=== PATIENT | male | born 1995 | race Caucasian/White ===

== ENCOUNTER 2016-07-18 14:10 | Inpatient (IN) | payer OTHER ==
[2016-07-18 15:15] VITALS: BMI 21.7
--- NOTE | 2016-07-18 19:27 | HP ---
COWS - Scale Resting Pulse: 1= [place] 81-100 Sweatin= Chills/Flushing Restless Observation: 1= Difficult to Sit Still Pupil Size: 0= Normal to Room Light Bone or Joint Aches: 2= Severe Diffuse Aches Runny Nose/ Eye Tearin= Runny Nose/Eyes GI Upset > 30mins: 2= Nausea/Diarrhea Tremor Observation: 2= Slight Tremor Visible Yawning Observation: 0= None Anxiety or Irritability: 2=Irritable/Anxious Goose Flesh Skin: 3=Piloerection COWS Score: 16 Admission ROS S - [facility] Chief Complaint: WITHDRAWAL SX Allergies/Adverse Reactions: Allergies Allergy/AdvReac Type Severity Reaction Status Date / Time No Known Allergies Allergy Verified 07/18/16 19:23 History of Present Illness: 21 YEARS OLD MALE WITH LONG HISTORY OF OPIATE NICOTINE DEPENDENCE, DENIES MEDICAL ISSUE HAS ANXIETY TREATED WITH SEROQUEL, LONGEST SOBRIETY 2 DAYS IS ADMITTED TO DETOX Exam Limitations: No Limitations - Ebola screening Have you traveled outside of the country in the last 21 days: No (N) Have you had contact with anyone from an Ebola affected area: No Have you been sick,other than usual withdrawal symptoms: No Do you have a fever: No - Review of Systems Constitutional: Chills, Changes in sleep, Weight Stable EENT: reports: No Symptoms Reported Respiratory: reports: No Symptoms reported Cardiac: reports: No Symptoms Reported GI: reports: Diarrhea, Nausea, Poor Fluid Intake, Abdominal cramping : reports: No Symptoms Reported Musculoskeletal: reports: Back Pain, Joint Pain, Muscle Pain, Neck Pain Integumentary: reports: No Symptoms Reported Neuro: reports: Tremors Endocrine: reports: No Symptoms Reported Hematology: reports: No Symptoms Reported Psychiatric: reports: Judgement Intact, Orientated x3, Anxious Other Systems: Reviewed and Negative Patient History - Patient Medical History Hx Anemia: No Hx Asthma: No Hx Chronic Obstructive Pulmonary Disease (COPD): No Hx Cancer: No Hx Cardiac Disorders: No Hx Congestive Heart Failure: No Hx Hypertension: No Hx Hypercholesterolemia: No Hx Pacemaker: No HX Cerebrovascular Accident: No Hx Seizures: No Hx Dementia: No Hx Diabetes: No Hx Gastrointestinal Disorders: No Hx Liver Disease: No Hx Sexually Transmitted Disorders: No Hx Renal Disease (ESRD): No Hx Thyroid Disease: No Hx Human Immunodeficiency Virus (HIV): No Hx Hepatitis C: No Hx Depression: Yes Hx Suicide Attempt: Yes (18 YEARS OLD CUT WRISTS) Hx Bipolar Disorder: No Hx Schizophrenia: No - Patient Surgical History Past Surgical History: No - PPD History Previous Implant?: Yes Documented Results: Negative w/o proof Implanted On Prior [facility] Admission?: No PPD to be Administered?: Yes - Smoking Cessation Smoking history: Current every day smoker Have you smoked in the past 12 months: Yes Aproximately how many cigarettes per day: 7 Cigars Per Day: 0 Hx Chewing Tobacco Use: No Initiated information on smoking cessation: Yes 'Breaking Loose' booklet given: 07/18/16 - Substance & Tx. History Hx Alcohol Use: No Hx Substance Use: Yes Substance Use Type: Marijuana, Opiates Hx Substance Use Treatment: Yes - Substances Abused Heroin Route: Inhalation Frequency: Daily Amount used: 10 BAGS Age of first use: 20 Date of Last Use: 07/17/16 Family Disease History - Family Disease History Family History: Denies Admission Physical Exam BHS - Vital Signs Vital Signs: Vital Signs - 24 hr 07/18/16 15:13 Temperature 99.1 F Pulse Rate 82 Respiratory 20 Rate Blood Pressure 123/66 - Physical General Appearance: Yes: Appropriately Dressed, Mild Distress, Tremorous, Irritable, Sweating, Anxious HEENTM: Yes: Hearing grossly Normal, Normal ENT Inspection, Normocephalic, Normal Voice Respiratory: Yes: Chest Non-Tender, Lungs Clear, Normal Breath Sounds, No Respiratory Distress, No Accessory Muscle Use Neck: Yes: Supple, Trachea in good position Breast: Yes: Breasts Symetrical Cardiology: Yes: Regular Rhythm, Regular Rate, S1, S2 Abdominal: Yes: Non Tender, Soft Genitourinary: Yes: Within Normal Limits Back: Yes: Normal Inspection Musculoskeletal: Yes: full range of Motion, Gait Steady, Muscle Pain Extremities: Yes: Normal Inspection, Normal Range of Motion, Non-Tender, Tremors Neurological: Yes: Fully Oriented, Alert, Motor Strength 5/5, Normal Mood/Affect , Normal Response Integumentary: Yes: Warm, Moist Lymphatic: Yes: Within Normal Limits - Diagnostic (1) Opioid dependence with withdrawal Current Visit: Yes Status: Acute (2) Nicotine dependence Current Visit: Yes Status: Acute Qualifiers: Nicotine product type: cigarettes Substance use status: uncomplicated Qualified Code(s): F17.210 - Nicotine dependence, cigarettes, uncomplicated (3) Anxiety Current Visit: Yes Status: Suspected Comment: SEROQUEL Cleared for Admission [facility] - Detox or Rehab [facility] Level of Care: Medically Managed Detox Regimen/Protocol: Methadone [facility] Breath Alcohol Content Breath Alcohol Content: 0 Urine Drug Screen - Results Drug Screen Negative: No Urine Drug Screen Results: THC-Marijuana, OPI-Opiates
[2016-07-18] MEDS ORDERED: NICOTINE POLACRILEX 2 MG GUM BC PRN (19:31)
[2016-07-18] MEDS ORDERED: MAG HYDROX/AL HYDROX/SIMETH 30 ML UNIT-DOSE CUP PO PRN (19:31)
[2016-07-18] MEDS ORDERED: MENTHOL/PHENOL 1 EACH UD MM PRN (19:31)
[2016-07-18] MEDS ORDERED: LOPERAMIDE HCL 2 MG CAPSULE PO PRN (19:31)
[2016-07-18] MEDS ORDERED: IBUPROFEN 400 MG TABLET (FP) PO PRN (19:31)
[2016-07-18] MEDS ORDERED: P-EPHED 60MG/TRIPROLIDI 2.5MG TABLET PO PRN (19:31)
[2016-07-18] MEDS ORDERED: guaiFENesin/D-METHORPHAN HB 10 ML UNIT-DOSE CUPS PO PRN (19:31)
[2016-07-18] MEDS ORDERED: MAGNESIUM CITRATE 300 ML BOTTLE PO PRN (19:31)
[2016-07-18] MEDS ORDERED: ACETAMINOPHEN 325 MG TABLET (FP) PO PRN (19:31)
[2016-07-18] MEDS ORDERED: MAGNESIUM HYDROX 2400MG/30ML ORAL SUSPENSION 30 ML CUP PO PRN (19:31)
[2016-07-18] MEDS ORDERED: METHADONE HCL 10 MG TABLET (FOR DETOX USE ONLY) PO ONE ×2 (19:31→23:00)
[2016-07-18] MEDS: diazePAM 5 MG TABLET PO PRN (20:27)
[2016-07-18] MEDS: diphenhydrAMINE HCL 50 MG CAPSULE PO PRN (22:43)
[2016-07-18] MEDS: THIAMINE HCL 100 MG TABLET (FP) PO SCH (22:43)
[2016-07-19] MEDS ORDERED: METHADONE HCL 10 MG TABLET (FOR DETOX USE ONLY) PO ONE (10:00)
--- NOTE | 2016-07-19 10:26 | PN ---
BHS COWS - Scale Resting Pulse: 1= [place] 81-100 Sweatin=Flushed/Facial Moisture Restless Observation: 1= Difficult to Sit Still Pupil Size: 1= Pupils >than Normal Bone or Joint Aches: 2= Severe Diffuse Aches Runny Nose/ Eye Tearin= Nasal Congestion GI Upset > 30mins: 1= Stomach Cramp Tremor Observation of Outstretched Hands: 1= Tremor [place], Not Seen Yawning Observation: 0= None Anxiety or Irritability: 2=Irritable/Anxious Goose Flesh Skin: 0=Smooth Skin COWS Score: 12 BHS Progress Note (SOAP) Subjective: interrupted sleep, sweats, shakes , lbp Objective: 07/19/16 10:24 Vital Signs Temperature 98.4 F 07/19/16 10:09 Pulse Rate 74 07/19/16 10:09 Respiratory Rate 18 07/19/16 10:09 Blood Pressure 105/53 07/19/16 10:09 O2 Sat by Pulse Oximetry (%) Vital Signs Temperature 98.4 F 07/19/16 10:09 Pulse Rate 74 07/19/16 10:09 Respiratory Rate 18 07/19/16 10:09 Blood Pressure 105/53 07/19/16 10:09 O2 Sat by Pulse Oximetry (%) pending labs pt aox3 in nad ambulating Assessment: 07/19/16 10:24 withdraw; sxs lbp Plan: cont. detox increase fluids flexeril 10mg tid/prn motrin prn f/up pending labs
[2016-07-19] MEDS: PRENATAL VITAMINS W/ FOLIC ACID TABLET (FP) PO SCH (10:28)
[2016-07-19 10:29] LABS: MCH 30.4 pg (25.7-33.7); MCHC 33.3 g/dl (32.0-35.9); MEAN CELL VOLUME 91.1 fl (80-96); MEAN PLT VOLUME 10.9 fl (7.5-11.1); PLATELET COUNT 164 K/MM3 (134-434); WHITE BLOOD COUNT 7.6 K/mm3 (4.0-10.0)
[2016-07-19] MEDS: diazePAM 5 MG TABLET PO PRN ×2 (10:31→18:18)
[2016-07-19] MEDS: NICOTINE 14 MG/24 HOURS TOPICAL PATCH TD SCH (10:35)
[2016-07-19 10:42] LABS: ANION GAP 4 (8-16); CO2 31 mmol/L (21-32); GLUCOSE,RANDOM 78 mg/dL (74-106)
[2016-07-19 10:53] LABS: ALK PHOS 63 U/L (45-117); BILIRUBIN,TOTAL 0.4 mg/dL (0.2-1.0); CREATININE 0.9 mg/dL (0.7-1.3); SGOT/AST 10 U/L (15-37); SGPT/ALT 18 U/L (12-78); TOT PROT 7.1 g/dl (6.4-8.2)
[2016-07-19 14:27] LABS: URINE APPEARANCE CLEAR; URINE BILIRUBIN NEGATIVE (NEGATIVE); URINE BLOOD NEGATIVE (NEGATIVE); URINE COLOR YELLOW; URINE GLUCOSE (UA) NEGATIVE (NEGATIVE); URINE KETONE NEGATIVE (NEGATIVE); URINE LEUK ESTERASE NEGATIVE (NEGATIVE); URINE NITRITE NEGATIVE (NEGATIVE); URINE PROTEIN NEGATIVE (NEGATIVE); URINE UROBILINOGEN NEGATIVE E.U./dl (0.2-1.0)
--- NOTE | 2016-07-19 16:22 | EKG ---
Test Reason : Blood Pressure : / mmHG Vent. Rate : 072 BPM Atrial Rate : 072 BPM P-R Int : 174 ms QRS Dur : 082 ms QT Int : 394 ms P-R-T Axes : 061 068 030 degrees QTc Int : 431 ms NORMAL SINUS RHYTHM MINIMAL VOLTAGE CRITERIA FOR LVH, MAY BE NORMAL VARIANT BORDERLINE ECG NO PREVIOUS ECGS AVAILABLE Confirmed by GRANT PRIEST MD ([id number]) on 07/19/2016 4:21:30 PM Referred By: Confirmed By:GRANT PRIEST MD
[2016-07-19] MEDS: THIAMINE HCL 100 MG TABLET (FP) PO SCH (22:29)
[2016-07-19] MEDS: diphenhydrAMINE HCL 50 MG CAPSULE PO PRN (22:29)
[2016-07-20] MEDS ORDERED: METHADONE HCL 5 MG TABLET (FOR DETOX USE ONLY) PO ONE (10:00)
[2016-07-20] MEDS: PRENATAL VITAMINS W/ FOLIC ACID TABLET (FP) PO SCH (10:59)
[2016-07-20] MEDS: diazePAM 5 MG TABLET PO PRN (10:59)
[2016-07-20] MEDS: NICOTINE 14 MG/24 HOURS TOPICAL PATCH TD SCH (11:00)
--- NOTE | 2016-07-20 12:54 | PN ---
S CIWA - CIWA Score Nausea/Vomitin-Mild Nausea/No Vomiting Muscle Tremors: 3 Anxiety: 2 Agitation: 2 Paroxysmal Sweats: 2 Orientation: 0-Oriented Tacttile Disturbances: 1-Very Mild Itch/Numbness Auditory Disturbances: 0-None Visual Disturbances: 0-None Headache: 0-None Present CIWA-Ar Total Score: 11 BHS Progress Note (SOAP) Subjective: interupted sleep, shakes Objective: 07/20/16 12:53 Vital Signs Temperature 98.2 F 07/20/16 10:02 Pulse Rate 81 07/20/16 10:02 Respiratory Rate 18 07/20/16 10:02 Blood Pressure 127/66 07/20/16 10:02 O2 Sat by Pulse Oximetry (%) Vital Signs Temperature 98.2 F 07/20/16 10:02 Pulse Rate 81 07/20/16 10:02 Respiratory Rate 18 07/20/16 10:02 Blood Pressure 127/66 07/20/16 10:02 O2 Sat by Pulse Oximetry (%) Laboratory Tests 07/19/16 07/19/16 07/19/16 06:30 06:30 06:30 WBC 7.6 RBC 4.54 Hgb 13.8 Hct 41.4 MCV 91.1 MCHC 33.3 RDW 14.0 Plt Count 164 MPV 10.9 Sodium 142 Potassium 4.2 Chloride 107 Carbon Dioxide 31 Anion Gap 4 L BUN 14 Creatinine 0.9 Creat Clearance w eGFR > 60 Random Glucose 78 Calcium 9.0 Total Bilirubin 0.4 AST 10 L ALT 18 Alkaline Phosphatase 63 Total Protein 7.1 Albumin 4.0 Urine Color Urine Appearance Urine pH Ur Specific [place] Urine Protein Urine Glucose (UA) Urine Ketones Urine Blood Urine Nitrite Urine Bilirubin Urine Urobilinogen Ur Leukocyte Esterase RPR Titer Nonreactive Hepatitis C Antibody 07/19/16 07/19/16 06:30 11:20 WBC RBC Hgb Hct MCV MCHC RDW Plt Count MPV Sodium Potassium Chloride Carbon Dioxide Anion Gap BUN Creatinine Creat Clearance w eGFR Random Glucose Calcium Total Bilirubin AST ALT Alkaline Phosphatase Total Protein Albumin Urine Color Yellow Urine Appearance Clear Urine pH 5.0 Ur Specific [place] 1.027 Urine Protein Negative Urine Glucose (UA) Negative Urine Ketones Negative Urine Blood Negative Urine Nitrite Negative Urine Bilirubin Negative Urine Urobilinogen Negative Ur Leukocyte Esterase Negative RPR Titer Hepatitis C Antibody <0.1 pt aox3 in nad ambulating Assessment: 07/20/16 12:53 withdrawlsx's Plan: cont. detox increase fluids
[2016-07-20] MEDS: diphenhydrAMINE HCL 50 MG CAPSULE PO PRN (22:32)
[2016-07-20] MEDS: THIAMINE HCL 100 MG TABLET (FP) PO SCH (23:13)
[2016-07-21] MEDS ORDERED: METHADONE HCL 5 MG TABLET (FOR DETOX USE ONLY) PO ONE (10:00)
[2016-07-21] MEDS: diazePAM 5 MG TABLET PO PRN (10:37)
[2016-07-21] MEDS: PRENATAL VITAMINS W/ FOLIC ACID TABLET (FP) PO SCH (10:37)
[2016-07-21] MEDS: NICOTINE 14 MG/24 HOURS TOPICAL PATCH TD SCH (10:37)
--- NOTE | 2016-07-21 10:49 | PN ---
BHS Progress Note (SOAP) Subjective: irritable sweats Objective: 07/21/16 10:48 Vital Signs Temperature 97.7 F 07/21/16 10:01 Pulse Rate 88 07/21/16 10:01 Respiratory Rate 18 07/21/16 10:01 Blood Pressure 127/60 07/21/16 10:01 O2 Sat by Pulse Oximetry (%) Laboratory Tests 07/19/16 07/19/16 07/19/16 06:30 06:30 06:30 WBC 7.6 RBC 4.54 Hgb 13.8 Hct 41.4 MCV 91.1 MCHC 33.3 RDW 14.0 Plt Count 164 MPV 10.9 Sodium 142 Potassium 4.2 Chloride 107 Carbon Dioxide 31 Anion Gap 4 L BUN 14 Creatinine 0.9 Creat Clearance w eGFR > 60 Random Glucose 78 Calcium 9.0 Total Bilirubin 0.4 AST 10 L ALT 18 Alkaline Phosphatase 63 Total Protein 7.1 Albumin 4.0 Urine Color Urine Appearance Urine pH Ur Specific [place] Urine Protein Urine Glucose (UA) Urine Ketones Urine Blood Urine Nitrite Urine Bilirubin Urine Urobilinogen Ur Leukocyte Esterase RPR Titer Nonreactive Hepatitis C Antibody 07/19/16 07/19/16 06:30 11:20 WBC RBC Hgb Hct MCV MCHC RDW Plt Count MPV Sodium Potassium Chloride Carbon Dioxide Anion Gap BUN Creatinine Creat Clearance w eGFR Random Glucose Calcium Total Bilirubin AST ALT Alkaline Phosphatase Total Protein Albumin Urine Color Yellow Urine Appearance Clear Urine pH 5.0 Ur Specific [place] 1.027 Urine Protein Negative Urine Glucose (UA) Negative Urine Ketones Negative Urine Blood Negative Urine Nitrite Negative Urine Bilirubin Negative Urine Urobilinogen Negative Ur Leukocyte Esterase Negative RPR Titer Hepatitis C Antibody <0.1 awake/alert ambulating no acute distress Assessment: 07/21/16 10:49 withdrawal sx Plan: continue detox increase fluids
[2016-07-21] MEDS: THIAMINE HCL 100 MG TABLET (FP) PO SCH (22:33)
[2016-07-21] MEDS: diphenhydrAMINE HCL 50 MG CAPSULE PO PRN (22:33)
[2016-07-22] MEDS ORDERED: METHADONE HCL 10 MG TABLET (FOR DETOX USE ONLY) PO ONE (10:00)
[2016-07-22] MEDS: NICOTINE 14 MG/24 HOURS TOPICAL PATCH TD SCH (10:39)
[2016-07-22] MEDS: PRENATAL VITAMINS W/ FOLIC ACID TABLET (FP) PO SCH (10:39)
--- NOTE | 2016-07-22 10:46 | PN ---
BHS Progress Note (SOAP) Subjective: sweats Objective: 07/22/16 10:46 Vital Signs Temperature 97.3 F L 07/22/16 10:00 Pulse Rate 81 07/22/16 10:00 Respiratory Rate 18 07/22/16 10:00 Blood Pressure 124/59 07/22/16 10:00 O2 Sat by Pulse Oximetry (%) awake/alert ambulating no acute distress Assessment: 07/22/16 10:46 withdrawal sx Plan: continue detox d/c in am
[2016-07-22] MEDS: diphenhydrAMINE HCL 50 MG CAPSULE PO PRN (22:48)
[2016-07-22] MEDS: THIAMINE HCL 100 MG TABLET (FP) PO SCH (22:48)
[2016-07-23] MEDS ORDERED: METHADONE HCL 5 MG TABLET (FOR DETOX USE ONLY) PO ONE (06:00)
[2016-07-23 06:23] VITALS: BP 100/64; PULSE 75; TEMP 98.2
--- NOTE | 2016-07-23 13:47 | PN ---
BHS Progress Note (SOAP) Subjective: no complaints Objective: 07/23/16 13:46 Vital Signs - 8 hr 07/23/16 06:23 Temperature 98.2 F Pulse Rate 75 Respiratory 18 Rate Blood Pressure 100/64 Laboratory Tests 07/19/16 07/19/16 07/19/16 06:30 06:30 06:30 WBC 7.6 RBC 4.54 Hgb 13.8 Hct 41.4 MCV 91.1 MCHC 33.3 RDW 14.0 Plt Count 164 MPV 10.9 Sodium 142 Potassium 4.2 Chloride 107 Carbon Dioxide 31 Anion Gap 4 L BUN 14 Creatinine 0.9 Creat Clearance w eGFR > 60 Random Glucose 78 Calcium 9.0 Total Bilirubin 0.4 AST 10 L ALT 18 Alkaline Phosphatase 63 Total Protein 7.1 Albumin 4.0 Urine Color Urine Appearance Urine pH Ur Specific [place] Urine Protein Urine Glucose (UA) Urine Ketones Urine Blood Urine Nitrite Urine Bilirubin Urine Urobilinogen Ur Leukocyte Esterase RPR Titer Nonreactive Hepatitis C Antibody 07/19/16 07/19/16 06:30 11:20 WBC RBC Hgb Hct MCV MCHC RDW Plt Count MPV Sodium Potassium Chloride Carbon Dioxide Anion Gap BUN Creatinine Creat Clearance w eGFR Random Glucose Calcium Total Bilirubin AST ALT Alkaline Phosphatase Total Protein Albumin Urine Color Yellow Urine Appearance Clear Urine pH 5.0 Ur Specific [place] 1.027 Urine Protein Negative Urine Glucose (UA) Negative Urine Ketones Negative Urine Blood Negative Urine Nitrite Negative Urine Bilirubin Negative Urine Urobilinogen Negative Ur Leukocyte Esterase Negative RPR Titer Hepatitis C Antibody <0.1 Assessment: 07/23/16 13:47 completed detox, medically stable Plan: discharged early am
--- NOTE | 2016-07-23 13:48 | DS ---
[facility] Detox Discharge Summary Admission Date: 07/18/16 Discharge Date: 07/23/16 - History Present History: Opioid Dependence Pertinent Past History: nicotine dependence, anxiety, depression, insomnia - Physical Exam Results Vital Signs: Vital Signs Temperature 98.2 F 07/23/16 06:23 Pulse Rate 75 07/23/16 06:23 Respiratory Rate 18 07/23/16 06:23 Blood Pressure 100/64 07/23/16 06:23 O2 Sat by Pulse Oximetry (%) Pertinent Admission Physical Exam Findings: withdrawal sx - Treatment Hospital Course: Detox Protocol Followed, Detoxed Safely, Responded well, Discharged Condition Good, Rehab Referral Accepted Patient has Accepted a Rehab Referral to: Yes - Medication Discharge Medications: Ambulatory Orders Quetiapine Fumarate [Seroquel -] 50 mg PO HS 07/18/16 - Diagnosis (1) Nicotine dependence Status: Acute Qualifiers: Nicotine product type: cigarettes Substance use status: uncomplicated Qualified Code(s): F17.210 - Nicotine dependence, cigarettes, uncomplicated (2) Opioid dependence with withdrawal Status: Acute (3) Anxiety Status: Suspected - AMA Did Patient Leave Against Medical Advice: No
== END 2016-07-23 09:25 | disposition home or self-care (01) | DRG 773 ==
LOC: YASAS 14:10 → Y6N 19:25
PROVIDERS: ADMIT Internal Medicine; ATTEND Internal Medicine
PROC: HZ2ZZZZ Detoxification Services for Substance Abuse Treatment (ICD-10-PCS; principal; 2016-07-18)
DX: F11.23 Opioid dependence with withdrawal (principal); F17.210 Nicotine dependence, cigarettes, uncomplicated; F41.9 Anxiety disorder, unspecified; M54.5 Low back pain; Z91.5 Personal history of self-harm
CPT/HCPCS: 36415; 80053; 81003; 85027; 86593; 86803; 93005; 93010

== ENCOUNTER 2023-06-14 12:50 | Inpatient (IN) | payer OTHER ==
[2023-06-14 13:15] VITALS: BMI 30.7
[2023-06-14] MEDS ORDERED: ACETAMINOPHEN 325 MG TABLET (FP) PO PRN (17:01)
[2023-06-14] MEDS ORDERED: ONDANSETRON *ODT* 4 MG TABLET SL PRN (17:01)
[2023-06-14] MEDS ORDERED: MAG HYDROX/AL HYDROX/SIMETH 30 ML UNIT-DOSE CUP PO PRN (17:01)
[2023-06-14] MEDS ORDERED: MAGNESIUM HYDROX 2400MG/30ML ORAL SUSPENSION 30 ML CUP PO PRN (17:01)
[2023-06-14] MEDS ORDERED: DICYCLOMINE HCL 10 MG CAPSULE PO PRN (17:01)
[2023-06-14] MEDS ORDERED: POLYETHYLENE GLYCOL (HEALTHYLAX) 3350 17 GM PACKET PO PRN (17:01)
[2023-06-14] MEDS ORDERED: LOPERAMIDE HCL 2 MG CAPSULE PO PRN (17:01)
[2023-06-14] MEDS ORDERED: BENZONATATE 200 MG CAPSULE PO PRN (17:01)
[2023-06-14] MEDS ORDERED: guaiFENesin 600 MG TABLET.ER (FP) PO PRN (17:01)
[2023-06-14] MEDS ORDERED: IBUPROFEN 400 MG TABLET (FP) PO PRN (17:01)
[2023-06-14] MEDS ORDERED: BENZOCAINE/MENTHOL (CHLORASEPTIC ) LOZENGE MM PRN (17:01)
[2023-06-14] MEDS ORDERED: IBUPROFEN 600 MG TABLET (FP) PO PRN (17:01)
[2023-06-14] MEDS ORDERED: BISMUTH SUBSALICYLATE 524 MG/30 ML PO PRN (17:01)
[2023-06-14] MEDS ORDERED: P-EPHED 60MG/TRIPROLIDI 2.5MG TABLET PO PRN (17:01)
[2023-06-14] MEDS ORDERED: diazePAM 5 MG TABLET PO PRN (17:03)
[2023-06-14] MEDS ORDERED: diazePAM 5 MG TABLET ONE (17:56)
[2023-06-14] MEDS: diazePAM 5 MG TABLET PO SCH ×2 (17:59→22:51)
[2023-06-14] MEDS: THIAMINE HCL 100 MG TABLET (FP) PO SCH (22:50)
[2023-06-14] MEDS: MELATONIN 5 MG TABLETS PO SCH (22:50)
[2023-06-14] MEDS: METHOCARBAMOL 500 MG TABLET PO PRN (22:51)
[2023-06-15] MEDS: diazePAM 5 MG TABLET PO SCH ×4 (05:32→22:00)
[2023-06-15] MEDS ORDERED: methaDONE HCL 10 MG TABLET PO SCH (07:37)
[2023-06-15] MEDS: PRENATAL VITAMINS W/ FOLIC ACID TABLET (FP) PO SCH (10:04)
[2023-06-15 11:21] LABS: HEMATOCRIT 42.9 % (35.4-49); HEMOGLOBIN 13.9 GM/dL (11.7-16.9); MCH 29.9 pg (25.7-33.7); MCHC 32.5 g/dl (32.0-35.9); MEAN CELL VOLUME 92.1 fl (80-96); MEAN PLT VOLUME 10.7 fl (7.5-11.1); PLATELET COUNT 155 10^3/uL (134-434); RBC 4.66 M/mm3 (4.00-5.60); RDW 15.1 % (11.9-15.9); WHITE BLOOD COUNT 4.7 K/mm3 (4.0-10.0)
[2023-06-15 11:39] LABS: CHLORIDE 107 mmol/L (98-107); SODIUM 140 mmol/L (136-145)
[2023-06-15 11:42] LABS: ALBUMIN 3.6 g/dl (3.4-5.0); ANION GAP 4 mmol/L (4-13); CALCIUM 8.7 mg/dL (8.5-10.1); CO2 29 mmol/L (21-32); GLUCOSE,RANDOM 86 mg/dL (74-106)
[2023-06-15 11:46] LABS: CREATININE 0.8 mg/dL (0.55-1.3); SGOT/AST 6 U/L (15-37); SGPT/ALT 17 U/L (13-61)
[2023-06-15 11:47] LABS: BILIRUBIN,TOTAL 0.5 mg/dL (0.2-1); TOT PROT 6.8 g/dl (6.4-8.2)
[2023-06-15 11:49] LABS: ALK PHOS 134 U/L (45-117)
[2023-06-15] MEDS: THIAMINE HCL 100 MG TABLET (FP) PO SCH (22:00)
[2023-06-15] MEDS: MELATONIN 5 MG TABLETS PO SCH (22:00)
[2023-06-15] MEDS: METHOCARBAMOL 500 MG TABLET PO PRN (22:01)
[2023-06-16] MEDS: diazePAM 5 MG TABLET PO SCH ×2 (06:17→17:49)
[2023-06-16] MEDS: METHOCARBAMOL 500 MG TABLET PO PRN ×2 (10:16→17:50)
[2023-06-16] MEDS: PRENATAL VITAMINS W/ FOLIC ACID TABLET (FP) PO SCH (10:31)
[2023-06-16] MEDS: THIAMINE HCL 100 MG TABLET (FP) PO SCH (22:16)
[2023-06-16] MEDS: MELATONIN 5 MG TABLETS PO SCH (22:16)
[2023-06-17] MEDS: METHOCARBAMOL 500 MG TABLET PO PRN ×2 (05:46→10:25)
[2023-06-17] MEDS ORDERED: diazePAM 5 MG TABLET PO ONE (06:00)
[2023-06-17] MEDS: PRENATAL VITAMINS W/ FOLIC ACID TABLET (FP) PO SCH (10:25)
[2023-06-17 13:32] VITALS: BP 119/71; PULSE 75; RESP 16; TEMP 96.9
== END 2023-06-17 14:09 | disposition other institution (70) | DRG 773 ==
LOC: YASAS 12:50 → Y3N 17:39
PROVIDERS: ADMIT Allergy & Immunology; ATTEND Surgery
PROC: HZ2ZZZZ Detoxification Services for Substance Abuse Treatment (ICD-10-PCS; principal; 2023-06-14)
DX: F10.230 Alcohol dependence with withdrawal, uncomplicated (principal); F11.20 Opioid dependence, uncomplicated; F14.20 Cocaine dependence, uncomplicated; F17.210 Nicotine dependence, cigarettes, uncomplicated
CPT/HCPCS: 36415; 80053; 80307; 85027; 86780; 87635

== ENCOUNTER 2023-06-17 14:24 | Inpatient (IN) | payer OTHER ==
[2023-06-17] MEDS ORDERED: BENZOCAINE/MENTHOL (CHLORASEPTIC ) LOZENGE MM PRN (18:10)
[2023-06-17] MEDS ORDERED: NALOXONE HCL (KLOXXADO) 8 MG SPRAY NS PRN (18:10)
[2023-06-17] MEDS ORDERED: NALOXONE HCL 0.4 MG/ML VIAL IM PRN (18:10)
[2023-06-17] MEDS ORDERED: ACETAMINOPHEN 325 MG TABLET (FP) PO PRN (18:10)
[2023-06-17] MEDS ORDERED: BENZONATATE 200 MG CAPSULE PO PRN (18:10)
[2023-06-17] MEDS ORDERED: MAGNESIUM HYDROX 2400MG/30ML ORAL SUSPENSION 30 ML CUP PO PRN (18:10)
[2023-06-17] MEDS ORDERED: guaiFENesin 600 MG TABLET.ER (FP) PO PRN (18:10)
[2023-06-17] MEDS ORDERED: MAG HYDROX/AL HYDROX/SIMETH 30 ML UNIT-DOSE CUP PO PRN (18:10)
[2023-06-17] MEDS ORDERED: POLYETHYLENE GLYCOL (HEALTHYLAX) 3350 17 GM PACKET PO PRN (18:10)
[2023-06-17] MEDS ORDERED: IBUPROFEN 400 MG TABLET (FP) PO PRN (18:10)
[2023-06-17] MEDS ORDERED: LOPERAMIDE HCL 2 MG CAPSULE PO PRN (18:10)
[2023-06-17] MEDS ORDERED: COLLOIDAL OATMEAL 1 BAR EACH TP PRN (18:10)
[2023-06-17] MEDS: MELATONIN 5 MG TABLETS PO SCH (21:10)
[2023-06-17] MEDS: THIAMINE HCL 100 MG TABLET (FP) PO SCH (21:10)
[2023-06-17] MEDS: hydrOXYzine PAMOATE 25 MG CAPSULE (FP) PO PRN (21:10)
[2023-06-17 23:05] LABS: EPI CELLS 15 /uL (0-25.1); HYALINE CASTS 10 /uL (0-3.1); URINE APPEARANCE CLEAR; URINE BACTERIA 12 /uL (0-1359); URINE BILIRUBIN NEGATIVE (NEGATIVE); URINE COLOR YELLOW; URINE GLUCOSE (UA) NEGATIVE (NEGATIVE); URINE KETONE TRACE (NEGATIVE); URINE LEUK ESTERASE 1+ (NEGATIVE); URINE NITRITE NEGATIVE (NEGATIVE); URINE PROTEIN NEGATIVE (NEGATIVE); URINE RBC 2 /uL (0-23.9); URINE WBC 110 /uL (0-25.8)
[2023-06-18] MEDS ORDERED: methaDONE HCL 10 MG TABLET PO SCH (06:00)
[2023-06-18] MEDS: PRENATAL VITAMINS W/ FOLIC ACID TABLET (FP) PO SCH (10:28)
[2023-06-18] MEDS: THIAMINE HCL 100 MG TABLET (FP) PO SCH (21:15)
[2023-06-18] MEDS: MELATONIN 5 MG TABLETS PO SCH (21:15)
[2023-06-19] MEDS: PRENATAL VITAMINS W/ FOLIC ACID TABLET (FP) PO SCH (09:42)
[2023-06-19 11:45] LABS: CHLORIDE 107 mmol/L (98-107); HEMATOCRIT 49.8 % (35.4-49); MCH 29.5 pg (25.7-33.7); MCHC 32.2 g/dl (32.0-35.9); MEAN CELL VOLUME 91.6 fl (80-96); MEAN PLT VOLUME 10.9 fl (7.5-11.1); PLATELET COUNT 185 10^3/uL (134-434); POTASSIUM 3.9 mmol/L (3.5-5.1); RBC 5.44 M/mm3 (4.00-5.60); RDW 14.9 % (11.9-15.9); SODIUM 141 mmol/L (136-145); WHITE BLOOD COUNT 5.2 K/mm3 (4.0-10.0)
[2023-06-19 11:52] LABS: ALBUMIN 4.1 g/dl (3.4-5.0); ANION GAP 9 mmol/L (4-13); BLOOD UREA NITROGEN 8.1 mg/dL (7-18); CALCIUM 9.7 mg/dL (8.5-10.1); CO2 24 mmol/L (21-32); GLUCOSE,RANDOM 104 mg/dL (74-106)
[2023-06-19 11:54] LABS: SGOT/AST 11 U/L (15-37); SGPT/ALT 24 U/L (13-61)
[2023-06-19 11:56] LABS: BILIRUBIN,TOTAL 0.5 mg/dL (0.2-1); CREATININE 0.9 mg/dL (0.55-1.3); TOT PROT 7.8 g/dl (6.4-8.2)
[2023-06-19 11:57] LABS: ALK PHOS 154 U/L (45-117)
[2023-06-19 15:35] LABS: HIV INTERPRETATION NEGATIVE (NEGATIVE)
[2023-06-19 19:59] LABS: SYPHILIS W/ RPR CONF NON-REACTIVE (NONREACTIVE)
[2023-06-19] MEDS: MELATONIN 5 MG TABLETS PO SCH (21:19)
[2023-06-19] MEDS: THIAMINE HCL 100 MG TABLET (FP) PO SCH (21:20)
[2023-06-20] MEDS: hydrOXYzine PAMOATE 25 MG CAPSULE (FP) PO PRN ×2 (10:13→21:22)
[2023-06-20] MEDS: PRENATAL VITAMINS W/ FOLIC ACID TABLET (FP) PO SCH (10:13)
[2023-06-20] MEDS: THIAMINE HCL 100 MG TABLET (FP) PO SCH (21:22)
[2023-06-20] MEDS: MELATONIN 5 MG TABLETS PO SCH (21:22)
[2023-06-21] MEDS: PRENATAL VITAMINS W/ FOLIC ACID TABLET (FP) PO SCH (09:46)
[2023-06-21] MEDS: hydrOXYzine PAMOATE 25 MG CAPSULE (FP) PO PRN ×2 (09:46→21:37)
[2023-06-21] MEDS: MIRTAZAPINE 15 MG TABLET (FP) PO SCH (21:36)
[2023-06-21] MEDS: MELATONIN 5 MG TABLETS PO SCH (21:37)
[2023-06-21] MEDS: THIAMINE HCL 100 MG TABLET (FP) PO SCH (21:37)
[2023-06-22] MEDS: hydrOXYzine PAMOATE 25 MG CAPSULE (FP) PO PRN ×2 (07:07→21:11)
[2023-06-22] MEDS: PRENATAL VITAMINS W/ FOLIC ACID TABLET (FP) PO SCH (10:21)
[2023-06-22] MEDS: IBUPROFEN 600 MG TABLET (FP) PO PRN (10:22)
[2023-06-22] MEDS: MIRTAZAPINE 15 MG TABLET (FP) PO SCH (21:11)
[2023-06-22] MEDS: THIAMINE HCL 100 MG TABLET (FP) PO SCH (21:11)
[2023-06-22] MEDS: MELATONIN 5 MG TABLETS PO SCH (21:11)
[2023-06-23] MEDS: hydrOXYzine PAMOATE 25 MG CAPSULE (FP) PO PRN ×3 (06:02→21:05)
[2023-06-23] MEDS: PRENATAL VITAMINS W/ FOLIC ACID TABLET (FP) PO SCH (09:31)
[2023-06-23] MEDS: MIRTAZAPINE 15 MG TABLET (FP) PO SCH (21:05)
[2023-06-23] MEDS: THIAMINE HCL 100 MG TABLET (FP) PO SCH (21:05)
[2023-06-23] MEDS: MELATONIN 5 MG TABLETS PO SCH (21:05)
[2023-06-24] MEDS: hydrOXYzine PAMOATE 25 MG CAPSULE (FP) PO PRN ×2 (06:20→21:34)
[2023-06-24] MEDS: PRENATAL VITAMINS W/ FOLIC ACID TABLET (FP) PO SCH (10:11)
[2023-06-24] MEDS: MELATONIN 5 MG TABLETS PO SCH (21:34)
[2023-06-24] MEDS: THIAMINE HCL 100 MG TABLET (FP) PO SCH (21:34)
[2023-06-24] MEDS: MIRTAZAPINE 15 MG TABLET (FP) PO SCH (21:34)
[2023-06-25] MEDS: hydrOXYzine PAMOATE 25 MG CAPSULE (FP) PO PRN ×2 (06:15→21:02)
[2023-06-25] MEDS: PRENATAL VITAMINS W/ FOLIC ACID TABLET (FP) PO SCH (10:25)
[2023-06-25] MEDS: MIRTAZAPINE 15 MG TABLET (FP) PO SCH (21:01)
[2023-06-25] MEDS: MELATONIN 5 MG TABLETS PO SCH (21:01)
[2023-06-25] MEDS: THIAMINE HCL 100 MG TABLET (FP) PO SCH (21:01)
[2023-06-26] MEDS: hydrOXYzine PAMOATE 25 MG CAPSULE (FP) PO PRN ×2 (05:58→21:08)
[2023-06-26] MEDS: PRENATAL VITAMINS W/ FOLIC ACID TABLET (FP) PO SCH (09:47)
[2023-06-26] MEDS: MELATONIN 5 MG TABLETS PO SCH (21:08)
[2023-06-26] MEDS: THIAMINE HCL 100 MG TABLET (FP) PO SCH (21:08)
[2023-06-26] MEDS: MIRTAZAPINE 15 MG TABLET (FP) PO SCH (21:08)
[2023-06-27] MEDS: hydrOXYzine PAMOATE 25 MG CAPSULE (FP) PO PRN (06:16)
[2023-06-27] MEDS: PRENATAL VITAMINS W/ FOLIC ACID TABLET (FP) PO SCH (10:06)
[2023-06-27] MEDS: MIRTAZAPINE 30 MG TABLET PO SCH (21:08)
[2023-06-27] MEDS: THIAMINE HCL 100 MG TABLET (FP) PO SCH (21:08)
[2023-06-27] MEDS: MELATONIN 5 MG TABLETS PO SCH (21:08)
[2023-06-27] MEDS: hydrOXYzine PAMOATE 50 MG CAPSULE (FP) PO PRN (21:08)
[2023-06-28] MEDS: hydrOXYzine PAMOATE 50 MG CAPSULE (FP) PO PRN ×2 (06:09→21:18)
[2023-06-28] MEDS: PRENATAL VITAMINS W/ FOLIC ACID TABLET (FP) PO SCH (09:30)
[2023-06-28] MEDS: THIAMINE HCL 100 MG TABLET (FP) PO SCH (21:18)
[2023-06-28] MEDS: MIRTAZAPINE 30 MG TABLET PO SCH (21:18)
[2023-06-28] MEDS: MELATONIN 5 MG TABLETS PO SCH (21:18)
[2023-06-29] MEDS: hydrOXYzine PAMOATE 50 MG CAPSULE (FP) PO PRN ×2 (06:04→21:01)
[2023-06-29] MEDS: PRENATAL VITAMINS W/ FOLIC ACID TABLET (FP) PO SCH (10:02)
[2023-06-29] MEDS: MIRTAZAPINE 30 MG TABLET PO SCH (21:01)
[2023-06-29] MEDS: THIAMINE HCL 100 MG TABLET (FP) PO SCH (21:02)
[2023-06-29] MEDS: MELATONIN 5 MG TABLETS PO SCH (21:02)
[2023-06-30] MEDS: hydrOXYzine PAMOATE 50 MG CAPSULE (FP) PO PRN ×2 (06:23→21:42)
[2023-06-30] MEDS: PRENATAL VITAMINS W/ FOLIC ACID TABLET (FP) PO SCH (09:27)
[2023-06-30] MEDS: MELATONIN 5 MG TABLETS PO SCH (21:41)
[2023-06-30] MEDS: THIAMINE HCL 100 MG TABLET (FP) PO SCH (21:41)
[2023-06-30] MEDS: MIRTAZAPINE 30 MG TABLET PO SCH (21:41)
[2023-07-01] MEDS: hydrOXYzine PAMOATE 50 MG CAPSULE (FP) PO PRN ×2 (06:16→21:08)
[2023-07-01] MEDS: PRENATAL VITAMINS W/ FOLIC ACID TABLET (FP) PO SCH (10:11)
[2023-07-01] MEDS: MIRTAZAPINE 30 MG TABLET PO SCH (21:08)
[2023-07-01] MEDS: MELATONIN 5 MG TABLETS PO SCH (21:08)
[2023-07-01] MEDS: THIAMINE HCL 100 MG TABLET (FP) PO SCH (21:08)
[2023-07-02] MEDS: hydrOXYzine PAMOATE 50 MG CAPSULE (FP) PO PRN ×2 (06:20→21:26)
[2023-07-02] MEDS: PRENATAL VITAMINS W/ FOLIC ACID TABLET (FP) PO SCH (09:37)
[2023-07-02] MEDS: MELATONIN 5 MG TABLETS PO SCH (21:26)
[2023-07-02] MEDS: THIAMINE HCL 100 MG TABLET (FP) PO SCH (21:26)
[2023-07-02] MEDS: MIRTAZAPINE 30 MG TABLET PO SCH (21:26)
[2023-07-03] MEDS: hydrOXYzine PAMOATE 50 MG CAPSULE (FP) PO PRN ×2 (06:08→21:04)
[2023-07-03] MEDS: PRENATAL VITAMINS W/ FOLIC ACID TABLET (FP) PO SCH (10:03)
[2023-07-03] MEDS: MIRTAZAPINE 30 MG TABLET PO SCH (21:04)
[2023-07-03] MEDS: THIAMINE HCL 100 MG TABLET (FP) PO SCH (21:04)
[2023-07-03] MEDS: MELATONIN 5 MG TABLETS PO SCH (21:04)
[2023-07-04] MEDS: hydrOXYzine PAMOATE 50 MG CAPSULE (FP) PO PRN ×2 (05:59→21:22)
[2023-07-04] MEDS: PRENATAL VITAMINS W/ FOLIC ACID TABLET (FP) PO SCH (09:32)
[2023-07-04] MEDS: THIAMINE HCL 100 MG TABLET (FP) PO SCH (21:22)
[2023-07-04] MEDS: MIRTAZAPINE 30 MG TABLET PO SCH (21:22)
[2023-07-04] MEDS: MELATONIN 5 MG TABLETS PO SCH (21:22)
[2023-07-05] MEDS: hydrOXYzine PAMOATE 50 MG CAPSULE (FP) PO PRN ×2 (06:11→21:01)
[2023-07-05] MEDS: PRENATAL VITAMINS W/ FOLIC ACID TABLET (FP) PO SCH (10:14)
[2023-07-05] MEDS: MELATONIN 5 MG TABLETS PO SCH (21:01)
[2023-07-05] MEDS: THIAMINE HCL 100 MG TABLET (FP) PO SCH (21:01)
[2023-07-05] MEDS: MIRTAZAPINE 30 MG TABLET PO SCH (21:01)
[2023-07-06] MEDS: hydrOXYzine PAMOATE 50 MG CAPSULE (FP) PO PRN ×2 (06:05→21:25)
[2023-07-06] MEDS: PRENATAL VITAMINS W/ FOLIC ACID TABLET (FP) PO SCH (09:41)
[2023-07-06] MEDS: IBUPROFEN 600 MG TABLET (FP) PO PRN (09:42)
[2023-07-06] MEDS: MELATONIN 5 MG TABLETS PO SCH (21:25)
[2023-07-06] MEDS: MIRTAZAPINE 30 MG TABLET PO SCH (21:25)
[2023-07-06] MEDS: THIAMINE HCL 100 MG TABLET (FP) PO SCH (21:25)
[2023-07-07] MEDS: hydrOXYzine PAMOATE 50 MG CAPSULE (FP) PO PRN ×2 (06:14→21:08)
[2023-07-07] MEDS: PRENATAL VITAMINS W/ FOLIC ACID TABLET (FP) PO SCH (10:18)
[2023-07-07] MEDS: THIAMINE HCL 100 MG TABLET (FP) PO SCH (21:07)
[2023-07-07] MEDS: MELATONIN 5 MG TABLETS PO SCH (21:07)
[2023-07-07] MEDS: MIRTAZAPINE 30 MG TABLET PO SCH (21:08)
[2023-07-08] MEDS: hydrOXYzine PAMOATE 50 MG CAPSULE (FP) PO PRN ×2 (06:29→21:31)
[2023-07-08] MEDS: PRENATAL VITAMINS W/ FOLIC ACID TABLET (FP) PO SCH (10:19)
[2023-07-08] MEDS: THIAMINE HCL 100 MG TABLET (FP) PO SCH (21:31)
[2023-07-08] MEDS: MIRTAZAPINE 30 MG TABLET PO SCH (21:31)
[2023-07-08] MEDS: MELATONIN 5 MG TABLETS PO SCH (21:31)
[2023-07-09] MEDS: hydrOXYzine PAMOATE 50 MG CAPSULE (FP) PO PRN ×2 (05:55→21:13)
[2023-07-09] MEDS: PRENATAL VITAMINS W/ FOLIC ACID TABLET (FP) PO SCH (09:59)
[2023-07-09] MEDS: THIAMINE HCL 100 MG TABLET (FP) PO SCH (21:13)
[2023-07-09] MEDS: MIRTAZAPINE 30 MG TABLET PO SCH (21:13)
[2023-07-09] MEDS: MELATONIN 5 MG TABLETS PO SCH (21:13)
[2023-07-10] MEDS: hydrOXYzine PAMOATE 50 MG CAPSULE (FP) PO PRN ×2 (06:32→21:28)
[2023-07-10] MEDS: PRENATAL VITAMINS W/ FOLIC ACID TABLET (FP) PO SCH (10:29)
[2023-07-10] MEDS: MELATONIN 5 MG TABLETS PO SCH (21:28)
[2023-07-10] MEDS: MIRTAZAPINE 30 MG TABLET PO SCH (21:28)
[2023-07-10] MEDS: THIAMINE HCL 100 MG TABLET (FP) PO SCH (21:28)
[2023-07-11] MEDS: hydrOXYzine PAMOATE 50 MG CAPSULE (FP) PO PRN ×2 (06:25→21:02)
[2023-07-11] MEDS: PRENATAL VITAMINS W/ FOLIC ACID TABLET (FP) PO SCH (10:16)
[2023-07-11] MEDS: MIRTAZAPINE 30 MG TABLET PO SCH (21:02)
[2023-07-11] MEDS: MELATONIN 5 MG TABLETS PO SCH (21:02)
[2023-07-11] MEDS: THIAMINE HCL 100 MG TABLET (FP) PO SCH (21:02)
[2023-07-12] MEDS: hydrOXYzine PAMOATE 50 MG CAPSULE (FP) PO PRN ×2 (06:14→21:03)
[2023-07-12] MEDS: PRENATAL VITAMINS W/ FOLIC ACID TABLET (FP) PO SCH (09:46)
[2023-07-12] MEDS: THIAMINE HCL 100 MG TABLET (FP) PO SCH (21:03)
[2023-07-12] MEDS: MIRTAZAPINE 30 MG TABLET PO SCH (21:03)
[2023-07-12] MEDS: MELATONIN 5 MG TABLETS PO SCH (21:03)
[2023-07-13] MEDS: hydrOXYzine PAMOATE 50 MG CAPSULE (FP) PO PRN (06:29)
[2023-07-13 06:54] VITALS: BP 121/71; PULSE 86; RESP 18; TEMP 97.3
[2023-07-13] MEDS: PRENATAL VITAMINS W/ FOLIC ACID TABLET (FP) PO SCH (09:52)
== END 2023-07-13 10:03 | disposition home or self-care (01) | DRG 772 ==
LOC: Y3W 14:24
PROVIDERS: ADMIT Allergy & Immunology; ATTEND Psychiatry & Neurology Pain Medicine
PROC: HZ42ZZZ Group Counseling for Substance Abuse Treatment, Cognitive-Behavioral (ICD-10-PCS; principal; 2023-06-17)
DX: F10.20 Alcohol dependence, uncomplicated (principal); F11.20 Opioid dependence, uncomplicated; F14.20 Cocaine dependence, uncomplicated; F17.210 Nicotine dependence, cigarettes, uncomplicated; F41.9 Anxiety disorder, unspecified; G47.00 Insomnia, unspecified; Z56.0 Unemployment, unspecified; Z59.00 Homelessness unspecified
CPT/HCPCS: 36415; 80053; 80307; 81003; 85027; 86780; 86803; 87389; 87522